=== PATIENT | male | born 1985 ===

== ENCOUNTER 2023-04-30 21:35 | Emergency (ER) | payer SELFPAY ==
[~2023-04-30] VITALS: Ht 180.3 cm; Wt 104.5 kg
[2023-04-30 21:37] VITALS: BP 160/121; PULSE 153; RESP 16; TEMP 98; O2SAT 96
== END 2023-04-30 22:18 | disposition home or self-care (01) ==
LOC: ER 21:36
DX: R00.0 Tachycardia, unspecified (principal)
CPT/HCPCS: 99283